=== PATIENT | male | born 1955 | race Hispanic/Latino ===

== ENCOUNTER 2017-09-03 07:57 | Observation (INO) | payer SELFPAY ==
[~2017-09-03] VITALS: Ht 175.3 cm; Wt 104.5 kg
[~2017-09-03 07:57] MED LIST: NAPROSYN500 MG OR
--- NOTE | 2017-09-03 08:08 | NUR ---
TO ROOM 10 VIA STRETCHER IN STABLE CONDITION.
--- NOTE | 2017-09-03 08:08 | NUR ---
DURING TRIAGE PT WITH NON PRODUCTIVE COUGH. STATES " HAD COUGH FOR 1 WEEK"
--- NOTE | 2017-09-03 08:30 | NUR ---
PT REPORTS SCROTAL SWELLING X 1 WEEK AND WORSENING OVER THE PAST 2 DAYS. PT ALSO REPORTS COUGH X 8 DAYS ALSO WORSENING OVER THE PAST 2 DAYS. PT WAS DIAGNOSED WITH PNEUMONIA A FEW DAYS AGO, PER PT. PT DENIES AN ANTIBIOTIC USE AT THIS TIME. ABD SOFT, NON TENDER UPON PALPATION. LS DIMINISHED IN THE LOWER LOBES. IV INITIATED, LABS AND BC X 2 COLLECTED. PT AWARE OF PLAN OF CARE AND WAIT TIME. CALL RC VO.
[2017-09-03 08:52] LABS: HEMATOCRIT 43.6 % (39.0-50.0); HEMOGLOBIN 14.2 g/dl (14.0-18.0); IMMATURE GRANULOCYTES 0.7 % (0.0-1.0); MEAN CORPUSCULAR HGB 30.6 pG CALC (26.0-32.0); MEAN CORPUSCULAR HGB CONC 32.6 g/L CALC (32.0-36.0); NEUT# 8.17 thou/uL (1.82-7.42); RED BLOOD COUNT 4.64 mill/uL (4.70-6.10); RED CELL DISTRI WIDTH 15.4 % (11.5-15.5)
[2017-09-03 09:07] LABS: ANION GAP 17 (6-22 (CALC)); BUN 22 mg/dL (8-23); BUN/CREATININE RATIO 17 (12-20 (CALC)); CARBON DIOXIDE 22 mmol/l (22-30); CHLORIDE 109 mmol/l (95-108); CREATININE 1.3 mg/dL (0.7-1.3); GFR 56 ML/MIN (>=60 (CALC)); GFR FOR AFR.AMER. > 60 ML/MIN (>=60 (CALC)); POTASSIUM 4.7 mmol/l (3.5-5.1); SODIUM 143 mmol/l (137-146)
[2017-09-03 09:28] LABS: INFLUENZA A NONE DETECTED (NONE DETECT); INFLUENZA B NONE DETECTED (NONE DETECT)
--- NOTE | 2017-09-03 09:30 | NUR ---
IV FLUIDS AND CEFEPIME INFUSING WITH NO DIFFICULTY. PT DENIES ANY PAIN OR NEDS AT THIS TIME. IV SITE FREE FROM REDNESS/EDMEA. WILL CONTINUE TO MONITOR.
[2017-09-03 10:09] LABS: URINE BILIRUBIN - DIPSTICK NEGATIVE (NEGATIVE); URINE BLOOD DIPSTICK MODERATE (NEGATIVE); URINE COLOR YELLOW; URINE GLUCOSE - DIPSTICK NEGATIVE (NEGATIVE); URINE KETONE NEGATIVE (NEGATIVE); URINE LEUK ESTERASE NEGATIVE (Negative); URINE NITRITE - DIPSTICK NEGATIVE (Negative); URINE PH 5.5 (4.5-8.0); URINE PROTEIN - DIPSTICK 30 mg/dL (NEG-TRACE); URINE SPECIFIC GRAVITY 1.025; URINE UROBILINOGEN - DIPSTICK 0.2 E.U./dL (0.2)
[2017-09-03 10:18] LABS: URINE CLARITY HAZY
--- NOTE | 2017-09-03 10:19 | NUR ---
MD AT BEDSIDE TO DISCUSS RESULTS.
--- NOTE | 2017-09-03 11:40 | NUR ---
MD AT BEDSIDE TO DISCUSS RESULTS AND PLAN OF CARE.
--- NOTE | 2017-09-03 12:10 | NUR ---
IV ANTIBIOTICS INFUSING. PT SITTING UPRIGHT IN STRECHER TALKING TO FAMILY. PT DENIES ANY PAIN/SOB AT THIS TIME. PT AWARE OF PENDING ADMISSION. WILL CONTINTUE TO MONITOR. CALL TATUM WITHIN REACH.
--- NOTE | 2017-09-03 12:53 | NUR ---
REPORT CALLED TO ELIZABETH HERNÁNDEZ.
--- NOTE | 2017-09-03 12:55 | NUR ---
FROM ER VIA WHEELCHAIR ACCOMPANIED BY SOUMYA JOHNSON. AMBULATED TO BATHROOM WITH STEADY GAIT. RESPS EVEN AND UNLABORED ON ROOM AIR. #20 LAC INFUSING WITHOUT DIFFICULTY, SITE APPEARS HEALTHY. DENIES PAIN OR DISCOMFORT. ORIENTED TO ROOM AND CALL SYSTEM. SAFETY PRECAUTIONS REINFORCED. BED IN LOWEST POSITION WITH WHEELS LOCKED. CALL LIGHT WITHIN REACH. ENCOURAGED PT TO CALL FOR ANY NEEDS.
[2017-09-03 13:00] VITALS: BP 119/76
--- NOTE | 2017-09-03 15:33 | NUR ---
The consult for was called and I spoke to the social secretary cheng @ [phone]
[2017-09-03 15:46] VITALS: BP 114/69
--- NOTE | 2017-09-03 16:00 | NUR ---
SITTING IN BEDSIDE CHAIR, FAMILY AT BEDSIDE. RESPS EVEN AND UNLABORED ON ROOM AIR. DENIES PAIN OR DISCOMFORT. DR NERI IN WITH PT, NEW ORDERS RECEIVED. CALL LIGHT WITHIN REACH. ENCOURAGED PT AND FAMILY TO CALL FOR ANY NEEDS.
--- NOTE | 2017-09-03 16:40 | NUR ---
MEDIATED WITH ROBITUSSIN PO FOR C/O COUGH.
[2017-09-03 19:10] VITALS: BP 133/84
--- NOTE | 2017-09-03 19:30 | NUR ---
PT OOB IN BEDSIDE CHAIR. FAMILY AT BEDSIDE. PT DENIES PAIN. RESP EVEN AND UNLABORED; NO DISTRESS NOTED. ABD DISTENDED;SOFT. ACTIVE BOWEL SOUNDS NOTED. PEDAL PULSES PALPATED BILAT. IV LAC FLUSHED WITHOUT DIFFICULTY. FREQUENT ROUNDS MADE. CALL LIGHT WITHIN REACH.
--- NOTE | 2017-09-04 00:15 | NUR ---
RESP EVEN AND UNLABORED. NO DISTRESS NOTED. BED IN LOWEST POSITION; SAFETY PRECAUTIONS IN PLACE. CALL LIGHT WITHIN REACH.
--- NOTE | 2017-09-04 04:30 | NUR ---
PT WOKE FOR VITALS. ASSESSMENT UNCHANGED. PT DENIES PAIN. SAFETY PRECAUTIONS REINFORCED. CALL LIGHT WITHIN REACH.
[2017-09-04 04:35] VITALS: BP 104/69
[2017-09-04 07:08] LABS: HEMATOCRIT 39.5 % (39.0-50.0); HEMOGLOBIN 12.7 g/dl (14.0-18.0); IMMATURE GRANULOCYTES 0.8 % (0.0-1.0); MEAN CELL VOLUME 93.6 fL CALC (80.0-100.0); MEAN CORPUSCULAR HGB 30.1 pG CALC (26.0-32.0); MEAN CORPUSCULAR HGB CONC 32.2 g/L CALC (32.0-36.0); NEUT# 7.76 thou/uL (1.82-7.42); RED BLOOD COUNT 4.22 mill/uL (4.70-6.10); RED CELL DISTRI WIDTH 15.1 % (11.5-15.5)
[2017-09-04 07:21] LABS: ALBUMIN 3.4 g/dL (3.2-5.0); ALKALINE PHOSPHATASE 124 u/l (38-126); ANION GAP 15 (6-22 (CALC)); BILIRUBIN, TOTAL 0.3 mg/dL (0.0-1.4); BUN 19 mg/dL (8-23); BUN/CREATININE RATIO 16 (12-20 (CALC)); CARBON DIOXIDE 24 mmol/l (22-30); CHLORIDE 110 mmol/l (95-108); CREATININE 1.2 mg/dL (0.7-1.3); GFR > 60 ML/MIN (>=60 (CALC)); GFR FOR AFR.AMER. > 60 ML/MIN (>=60 (CALC)); POTASSIUM 4.6 mmol/l (3.5-5.1); SGOT/AST 18 u/l (19-48); SGPT/ALT 37 u/l (11-66); SODIUM 144 mmol/l (137-146); TOTAL PROTEIN 6.3 g/dL (6.3-8.2)
[2017-09-04 08:00] VITALS: BP 130/87
--- NOTE | 2017-09-04 08:00 | NUR ---
0700:BEDSIDE REPORT RECEIVED BY NURSE BERNARDO. PT IS SLEEPING WITH NO S/S OF DISTRESS NOTED. VIMALRN IS ORIENTED THIS NURSE. 0800: PT IS SITTING IN THE SIDE OF THE BED. ASSESSMENT DONE AND VS CHARTED. RESPS EVEN AND UNLABORED ON ROOM AIR. PT HAS A COUGH NON-PRODUCTIVE. LEFT AC #20 AND SITE APPEARS HEALTHY. PT STATED THAT HE HAS NO PAIN AT THIS TIME. POC DISCUSSED AND SAFETY PRECAUTIONS REINFORCED. PT VERBALIZED UNDERSTANDING. PT CALL LIGHT IN REACH. PT DENIES ANY NEEDS AT THIS TIME.
[2017-09-04 08:54] LABS: CHOLESTEROL HDL RATIO 7.7 (<4.4 (CALC)); MAGNESIUM 2.1 mg/dL (1.6-2.3)
--- NOTE | 2017-09-04 11:13 | NUR ---
PT IS SITTING IN THE CHAIR VISITING WITH FAMILY. PT DENIES ANY NEEDS AT THIS TIME.
--- NOTE | 2017-09-04 12:35 | NUR ---
DR. NERI AT BEDSIDE. MD DISCUSSED PLAN OF CARE WITH PT AND PT VERBALIZED UNDERSTADNING.
[2017-09-04] MEDS ORDERED: LEVAQUIN750 MG PO (12:53)
--- NOTE | 2017-09-04 14:46 | NUR ---
Discharge instructions given. Patient verbalizes understanding of same. Discharged in stable condition via Wheelchair to Home with family. All belongings sent with pt.
== END 2017-09-04 14:40 | disposition home or self-care (01) | DRG 195 ==
LOC: ED 07:57 → ED-I 10:11 → ED 12:01 → MS2 12:02
PROVIDERS: Family Medicine; Nurse Practitioner Family; ADMIT Internal Medicine; ATTEND Internal Medicine
DX: J18.9 Pneumonia, unspecified organism (principal); K40.90 Unilateral inguinal hernia, without obstruction or gangrene, not specified as recurrent
CPT/HCPCS: G0378; J0692

== ENCOUNTER 2017-09-04 17:36 | Inpatient (IN) | payer SELFPAY ==
[2017-09-04] VITALS (7 sets, daily range): BP systolic 107–119; BP diastolic 57–75
[~2017-09-04] VITALS: Ht 175.3 cm; Wt 106.4 kg
[~2017-09-04 17:36] MED LIST changes: +LEVAQUIN750 MG PO
--- NOTE | 2017-09-04 17:43 | NUR ---
PT ASSISTED OUT OF CAR, TAKEN STRAIGHT BACK TO ER ROOM 10 BY WC. WHITE IN ROOM. PT CHANGED INTO GOWN, ON DESILVERIZER, IV ESTABLISHED. BLADDER U/S IN ROOM.
--- NOTE | 2017-09-04 17:50 | NUR ---
PT SITTING UPRIGHT IN STRETCHER, TACHYPNIC AT 50 BPM. ABD DISTENDED AND FIRM TO THE TOUCH. BS ACTIVE. LS DIMINISHED BILATERALLY WITH CRACKLES. PT REPORTS 10/10 STABBING PAIN TO THE ABD AND MID BACK. SAO2 89% ON ROOM AIR AND PLACED ON 4L NC. MD AT BEDSIDE TOBIAS PLACED, MINIMAL URINE OUTPUT NOTED.
[2017-09-04 17:59] LABS: HEMATOCRIT 44.9 % (39.0-50.0); HEMOGLOBIN 14.4 g/dl (14.0-18.0); IMMATURE GRANULOCYTES 0.5 % (0.0-1.0); MEAN CELL VOLUME 94.5 fL CALC (80.0-100.0); MEAN CORPUSCULAR HGB 30.3 pG CALC (26.0-32.0); MEAN CORPUSCULAR HGB CONC 32.1 g/L CALC (32.0-36.0); NEUT# 11.79 thou/uL (1.82-7.42); RED BLOOD COUNT 4.75 mill/uL (4.70-6.10)
[2017-09-04 18:08] LABS: ALBUMIN 4.3 g/dL (3.2-5.0); ALKALINE PHOSPHATASE 153 u/l (38-126); ANION GAP 19 (6-22 (CALC)); BILIRUBIN, TOTAL 0.6 mg/dL (0.0-1.4); BUN 18 mg/dL (8-23); BUN/CREATININE RATIO 14 (12-20 (CALC)); CARBON DIOXIDE 24 mmol/l (22-30); CHLORIDE 106 mmol/l (95-108); CREATININE 1.3 mg/dL (0.7-1.3); GFR 56 ML/MIN (>=60 (CALC)); GFR FOR AFR.AMER. > 60 ML/MIN (>=60 (CALC)); LIPASE 82 u/l (23-300); POTASSIUM 4.5 mmol/l (3.5-5.1); SGOT/AST 33 u/l (19-48); SGPT/ALT 40 u/l (11-66); SODIUM 145 mmol/l (137-146); TOTAL PROTEIN 7.8 g/dL (6.3-8.2)
--- NOTE | 2017-09-04 18:15 | NUR ---
18 F NG TUBE PLACED IN RIGHT NARES. PLACEMENT CONFIRMED BY RETURN OF 300 MLS OF GASTRIC CONTENT, CLEAR IN COLOR WITH FOOD PARTICLES.
--- NOTE | 2017-09-04 18:37 | NUR ---
PT RETURNED FROM CT . TEMP RECHECK 103.8. NOTIFIED, AWAITING ORDERS. IV FLUIDS INFUSING, IV SITE FREE FROM REDNESS AND EDEMA.
--- NOTE | 2017-09-04 18:50 | NUR ---
REPORT GIVEN TO ELIZABETH NUR.
[2017-09-04 18:54] LABS: URINE BILIRUBIN - DIPSTICK NEGATIVE (NEGATIVE); URINE BLOOD DIPSTICK LARGE (NEGATIVE); URINE COLOR YELLOW; URINE GLUCOSE - DIPSTICK NEGATIVE (NEGATIVE); URINE KETONE NEGATIVE (NEGATIVE); URINE LEUK ESTERASE NEGATIVE (NEGATIVE); URINE NITRITE - DIPSTICK NEGATIVE (Negative); URINE PROTEIN - DIPSTICK TRACE mg/dL (NEG-TRACE); URINE UROBILINOGEN - DIPSTICK 0.2 E.U./dL (0.2)
[2017-09-04 18:55] LABS: URINE CLARITY CLOUDY
--- NOTE | 2017-09-04 18:55 | NUR ---
100% NON REBREATHER PLACED ON PATIENT. SAO2 NOW 98%.
[2017-09-04 19:05] LABS: URINE RBC TNTC RBC/hpf (0-5); URINE SQUAMOUS EPITHELIAL CELL FEW EPI/hpf (0-FEW)
--- NOTE | 2017-09-04 19:07 | NUR ---
FAMILY AT BEDSIDE. DISCUSSED CURRENT PLANS AND RESULTS. AWAITING DISPOSITION.
--- NOTE | 2017-09-04 20:03 | NUR ---
BREATHING TREATMENT GIVEN. BREATHING TECH. FOR GOOD DEPOSITION TO THE LUNGS.
--- NOTE | 2017-09-04 21:17 | NUR ---
SPO2 DROPPING. PT PREDOMINANTLY MOUTH BREATHING. CHANGED TO 50% VENTI MASK.
--- NOTE | 2017-09-04 21:43 | NUR ---
DECREASED TO 35 % VENTIMASK
--- NOTE | 2017-09-04 21:57 | NUR ---
REPORT GIVEN TO ELIZABETH JACKSON ICU. TOLERATING O2 CHANGES. AWAKE ALERT. Admission Note Report Given to: ELIZABETH JACKSON Transported by: Wheelchair X Stretcher Transported with: X Nurse Transporter X Patent IV X O2 X Molder Wax Ball
--- NOTE | 2017-09-04 22:10 | NUR ---
62 yr old male admitted icu5 per stretcher from er. stood to weigh then to bed. sob with exertion. o2 cont per 35% v/m. tight wheezing thruout. director cardiac shows sinus rhythm. #18 rac ns infusing @ 150cchr. ngt to lis in place draining small amt garcia drainage. gonzales cath in place. urine pink tinged. history obtained per er record & discharge summery. oriented to room. fall precaution initiated.
--- NOTE | 2017-09-04 22:30 | NUR ---
analisa from called this health science writer. informed that dr jo had talked to dr batres & dr batres wanted ngt d/c'd. ngt d/c'd.
--- NOTE | 2017-09-04 22:40 | NUR ---
notified danica called @ [facility] need to verify quinteno & roxy.
[2017-09-05] VITALS (10 sets, daily range): BP systolic 94–130; BP diastolic 51–80
--- NOTE | 2017-09-05 01:15 | NUR ---
lortab 7.5mg po given per request for h/a. family remains @ bedside.
--- NOTE | 2017-09-05 02:00 | NUR ---
eyes closed. no distress. electronic device monitor shows sinus rhythm.
--- NOTE | 2017-09-05 04:00 | NUR ---
lab here. blood drawn.
[2017-09-05 05:08] LABS: HEMATOCRIT 38.6 % (39.0-50.0); HEMOGLOBIN 12.1 g/dl (14.0-18.0); MEAN CELL VOLUME 95.5 fL CALC (80.0-100.0); MEAN CORPUSCULAR HGB CONC 31.3 g/L CALC (32.0-36.0); RED BLOOD COUNT 4.04 mill/uL (4.70-6.10); RED CELL DISTRI WIDTH 15.3 % (11.5-15.5)
[2017-09-05 05:33] LABS: ANION GAP 17 (6-22 (CALC)); BUN 16 mg/dL (8-23); BUN/CREATININE RATIO 14 (12-20 (CALC)); CARBON DIOXIDE 22 mmol/l (22-30); CHLORIDE 109 mmol/l (95-108); CREATININE 1.2 mg/dL (0.7-1.3); GFR > 60 ML/MIN (>=60 (CALC)); GFR FOR AFR.AMER. > 60 ML/MIN (>=60 (CALC)); MAGNESIUM 1.8 mg/dL (1.6-2.3); POTASSIUM 4.5 mmol/l (3.5-5.1); SODIUM 144 mmol/l (137-146)
--- NOTE | 2017-09-05 06:00 | NUR ---
awake. c/o pressure in bladder area. no acute distress.
--- NOTE | 2017-09-05 07:30 | NUR ---
PT SITTING UP ON BSC AM ASSESSMENT COMPLETED SEE INTERVNETIONS, LUNGS COARSE AND DIMINSHED, WITH NO SHORTNESS OF BREATH OR DISTRESS NOTED PT HAS THICK NECK AND TOLERATES VENTI MASK AT 35% W/O INCIDENT, SATS MAINTAINED WITH VENTI MASK, ABD LARGE AND BS ACTIVE LAST BM 09/02/17 PER PT ALSO STATES HE HASN'T BEEN EATING ALOT SO HE DENIES CONSTIPATION, SKIN WARM DRY AND INTACT FOLY INTACT DRAINING YELLOW URINE SOME BLOOD TINGING NOTED, COMFORT MEASURES PROVIDED, CALL TATUM WITHIN REACH.
--- NOTE | 2017-09-05 08:00 | NUR ---
PT RESTING REMAINS SITTING ON BSC (PER HIS REQUEST) COMFORT MEASURES PROVIDED, CALL TATUM WITHIN REACH
--- NOTE | 2017-09-05 08:51 | NUR ---
QUICKBOOKS BOOKKEEPER AT BEDSIDE FOR AM BATH AND LINEN CHANGE, SOME EXERTIONAL DYSPNEA NOTED PT TO SIT IN RECLINER (AGAIN PER HIS REQUEST) CONTINUE TO TOLERATE VENTI MASK, CALL TATUM WITHIN REACH
--- NOTE | 2017-09-05 09:01 | NUR ---
AT BEDSIDE, PT STANDING IN FRONT OF RECLINER TALKING WITH SPOUSE, CALL TATUM WITHIN REACH.
--- NOTE | 2017-09-05 10:05 | NUR ---
PT REMAINS SITTING UP IN RECLINER, AT BEDSIDE, CALL TATUM WITHIN REACH, MEDICATED FOR PAIN, LYNN CONTINUE TO MONITOR,
--- NOTE | 2017-09-05 10:56 | NUR ---
DARON ORTEZ IN TO SEE PATIENT, PLAN OF CARE DISCUSSED, INCLUDING PLAN OF CARE COMMUNICATION DONE VIS ERASMO JOHNSON ACTING INTREPRETER
--- NOTE | 2017-09-05 11:57 | NUR ---
MEDICATED ORDERED WITH SURFAK AND MIRALAX, PT TOOK WELL, AND INTERMITTENLY STANDS AT BEDSIDE WITH STORNG STEADY GAIT, CALL TATUM WITHIN REACH
--- NOTE | 2017-09-05 12:44 | NUR ---
S: NEWTON VARGAS is a 62 M who presents with bilateral pneumonia. All medications in patient's chart were reviewed. O: VS: BP: 103/62mmHg, P: 88 beats/min, RR: 20 breaths/min, T: 98.2F, Tmax(24h): 103.8F Actual Body Weight 104.4kg, HT 69in, Adj Body weight: 84.2kg, Scr=1.2, CrCl (based on C-G equation w/ adjusted BW= 77ml/min A: Blood culture from 09/03 is pending. P: Patient is currently on Zosyn 3.375g IV q6h plus received a 1x dose of vancomycin 1gm IV 09/04 @ 2330. Vancomycin ordered for pharmacy to dose. Start Vancomycin 1.25g IV Q12H @ 0200,1400. Vancomycin trough to be drawn on 09/07/17 @ 0130, 30 minutes prior to the 4th dose. Vancomycin goal trough is between 15-20 mcg/ml. Pharmacy will follow and or advise on antibiotics use as needed.
--- NOTE | 2017-09-05 13:16 | NUR ---
FAMILY MEMBERS AT BEDSIDE, CALL TATUM WITHIN REACH, IVF COTNINUE AT PRESCRIBED RATE. CONTINUES ON VENTI MASK W/O INCIDENT.
--- NOTE | 2017-09-05 15:40 | NUR ---
PT CAME FROM ICU VIA WHEELCHAIR BY ELIZABETH CORTEZ AND WITH FAMILY AT SIDE. WEIGHT OBTAIN AND PT IN BED NOW. ASSESSMENT DONE. LUNGS ARE COARSE AND DIMINSHED. PT STATED HE DID NOT FEEL SHORTNESS OF BREATH AND VENTI MASK ON. IV SITE #18 LAC AND #18 RAC APPEARS HEALTHY. TOBIAS DRAINING YELLOW SOME BLOOD TINGING. PT STATED THAT HE DOES NOT HAVE PAIN AT THIS TIME. OREIENTED PT TO THE ROOM AND CALL LIGHT SYSTEM. SAFETY PRECAUTIONS REINFORCED. PT VERBALIZED UNDERSTANDING.
--- NOTE | 2017-09-05 17:45 | NUR ---
PT IN SEMI-FOWLERS IN BED. VISTING WITH FAMILY. PT DENIES PAIN AT THIS TIME. PT IS GOING TO START EATING HIS DINNER AND PRUNE JUICE GIVEN. CALL LIGHT IN REACH.
--- NOTE | 2017-09-05 19:10 | NUR ---
REPORT RECEIVED FROM HOLLYRN;PT OOB RESTING IN RECLINER WITH FAMILY AT BEDSIDE;PT DENIES ANY PAIN;POC DISCUSSED;PT ENCOURAGED TO CALL FOR ASSISTANCE IF NEEDED;CALL LIGHT IN REACH;WILL CONTINUE TO MONITOR
--- NOTE | 2017-09-05 21:30 | NUR ---
PT IN RECLINER;A&O X3;ASSESSMENT COMPLETED;RESPIRATIONS EVEN AND UNLABORED ON VENTI MASK,DIMINISHED BASES NOTED;ABDOMEN SOFT;PT DENIES ANY PAIN OR DISCOMFORTS;#18G TO RAC INFUSING NS @ 125 ML/HR WELL, SITE APPEARS HEALTHY;#18G TO LAC FLUSHED AND PATENT;TELE MONITOR IN PLACE;STRONG PEDAL PULSES;TOBIAS CATHETER PATENT HANGING TO GRAVITY WITH LEG STRAP;PT DENIES ANY NEEDS AT THIS TIME;COT AND BLANKETS PROVIDED FOR FAMILY THAT ARE STAYING THE NIGHT;SAFETY PRECAUTIONS REINFORCED;CALL LIGHT IN REACH;WILL CONTINUE TO MONITOR
--- NOTE | 2017-09-06 | NUR ---
IVELISSE CORREA OBTAINING VS;PT COMPLAINS OF BURNING TO IV SITE;#18 TO RAC FOUND TO BE INFILTRATED;SITE REMOVED WITH CATHETER INTACT AND PRESSURE APPLIED;PT VOICES NO OTHER NEEDS AT THIS TIME;TELE MONITOR IN PLACE;TOBIAS CATHETER PATENT;CALL LIGHT IN REACH;WILL CONTINUE TO MONITOR
[2017-09-06 00:04] VITALS: BP 107/71
[2017-09-06 04:04] VITALS: BP 114/60
[2017-09-06 05:37] LABS: HEMATOCRIT 35.7 % (39.0-50.0); HEMOGLOBIN 11.6 g/dl (14.0-18.0); MEAN CELL VOLUME 93.7 fL CALC (80.0-100.0); MEAN CORPUSCULAR HGB 30.4 pG CALC (26.0-32.0); MEAN CORPUSCULAR HGB CONC 32.5 g/L CALC (32.0-36.0); RED BLOOD COUNT 3.81 mill/uL (4.70-6.10); RED CELL DISTRI WIDTH 14.8 % (11.5-15.5)
--- NOTE | 2017-09-06 05:40 | NUR ---
PT RESTING IN SEMI FOWLERS POSITION WITH SPOUSE AT BEDSIDE;#18G TO LAC FOUND DISLODGED;SITE REMOVED WITH CATHETER INTACT;NEW #22G TO RIGHT HAND STARTED,FLUSHED AND PATENT;PT VOICES NO OTHER COMPLAINTS AT THIS TIME;TELE MONITOR IN PLACE;TOBIAS CATHETER PATENT;CALL LIGHT IN REACH;WILL CONTINUE TO MONITOR
[2017-09-06 05:41] LABS: ANION GAP 17 (6-22 (CALC)); BUN 20 mg/dL (8-23); BUN/CREATININE RATIO 15 (12-20 (CALC)); CARBON DIOXIDE 21 mmol/l (22-30); CHLORIDE 111 mmol/l (95-108); CREATININE 1.3 mg/dL (0.7-1.3); GFR 56 ML/MIN (>=60 (CALC)); GFR FOR AFR.AMER. > 60 ML/MIN (>=60 (CALC)); POTASSIUM 4.2 mmol/l (3.5-5.1); SODIUM 144 mmol/l (137-146)
--- NOTE | 2017-09-06 07:00 | NUR ---
SHIFT CHANGE REPORT FROM ELADIA MATTSON RESTING IN BED, VENTI MASK IN PLACE, TELE MONITOR IN PLACE, DENIES PAIN AT THIS TIME, CALL TATUM IN REACH.
[2017-09-06 09:57] VITALS: BP 96/70
--- NOTE | 2017-09-06 10:45 | NUR ---
TOBIAS CATHETER REMOVED PER MD'S ORDER, PROCEDURE TOLERATED MODERATELY WELL WHTI PT C/O SOME DISCOMFORT, PT URINATED CLEAR YELLOW URINE AFTER REMOVAL.
[2017-09-06 11:07] VITALS: BP 121/75
[2017-09-06 15:59] VITALS: BP 136/74
--- NOTE | 2017-09-06 17:05 | NUR ---
Patient feels better. No side effectsc
[2017-09-06 18:00] VITALS: BP 131/77
--- NOTE | 2017-09-06 19:45 | NUR ---
PT RESTING IN SEMI-FOWLERS POSITION WITH FAMILY AT BEDSIDE. RESP EVEN AND UNLABORED WITH VENTI MASK IN PLACE. NO DISTRESS NOTED. TELE IN PLACE. ABD DISTENDED; SOFT. ACTIVE BOWEL SOUNDS NOTED. PEDAL PULSES PALPATED BILAT. IV RH PATENT; NO REDNESS OR EDEMA NOTED. PT DENIES PAIN. SAFETY PRECAUTIONS REINFORCED. FREQUENT ROUNDS MADE. CALL LIGHT WITHIN REACH.
[2017-09-07 00:10] VITALS: BP 123/76
--- NOTE | 2017-09-07 00:20 | NUR ---
PT WOKE TO PUT VENTI MASK BACK IN PLACE. PT DENIES PAIN. TELE IN PLACE. CALL LIGHT WITHIN REACH.
--- NOTE | 2017-09-07 04:10 | NUR ---
FAMILY AT BEDSIDE. RESP EVEN AND UNLABORED WITH VENTI MASK IN PLACE. ASSESSMENT UNCHANGED. TELE IN PLACE. CALL LIGHT WITHIN REACH.
[2017-09-07 05:00] VITALS: BP 105/60
[2017-09-07 06:11] LABS: HEMATOCRIT 33.4 % (39.0-50.0); HEMOGLOBIN 10.8 g/dl (14.0-18.0); MEAN CELL VOLUME 93.6 fL CALC (80.0-100.0); MEAN CORPUSCULAR HGB 30.3 pG CALC (26.0-32.0); MEAN CORPUSCULAR HGB CONC 32.3 g/L CALC (32.0-36.0); RED BLOOD COUNT 3.57 mill/uL (4.70-6.10); RED CELL DISTRI WIDTH 14.9 % (11.5-15.5)
[2017-09-07 06:16] LABS: ANION GAP 16 (6-22 (CALC)); BUN 20 mg/dL (8-23); BUN/CREATININE RATIO 18 (12-20 (CALC)); CARBON DIOXIDE 24 mmol/l (22-30); CHLORIDE 112 mmol/l (95-108); CREATININE 1.1 mg/dL (0.7-1.3); GFR > 60 ML/MIN (>=60 (CALC)); GFR FOR AFR.AMER. > 60 ML/MIN (>=60 (CALC)); POTASSIUM 4.3 mmol/l (3.5-5.1); SODIUM 147 mmol/l (137-146)
--- NOTE | 2017-09-07 07:00 | NUR ---
SHIFT CHANGE REPORT FROM HEIKE, PT SLEEPING BUT RESPONDS TO VERBAL STIMULI, STATES FEELS MUCH BETTER TODAY AND WANTS TO GO HOME, AMBULATED ALL HALLWAYS AT NIGHT, FACE MASK IN PLACE, IVF INFUSING @ KVO, TELE MONITOR IN PLACE, CALL TATUM IN REACH.
--- NOTE | 2017-09-07 11:15 | NUR ---
HAD SHOWER, AMBULATED ALL HALLWAYS AND IS NOW RESTING IN ROOM.
[2017-09-07 11:31] VITALS: BP 111/62
--- NOTE | 2017-09-07 15:32 | NUR ---
S: NEWTON VARGAS is a 62 M who presents with pneumonia and hypoxia. He has a history of inguinal hernia and pneumonia. All medications in patient's chart were reviewed. O: VS: BP 111/62, P 74, RR 22,T 99.4(F) W 106.396 kg, HT 69 in, Scr= 1.1,CrCl= 84.8 ml/min A: Blood culture show no growth after 48 hours. P: Patient is on Zosyn 3.375 G IV Q6H. Vancomycin ordered for pharmacy to dose. Resume Vancomycin 1.25 G IV Q12H. Vancomycin trough is drawn before the 4th dose on 09/09/17 at 01:30. Vancomycin goal trough is between 15-20 mcg/ml. Pharmacy will follow and or advise on antibiotics use as needed.
--- NOTE | 2017-09-07 15:36 | NUR ---
Patient feels better but still has cough with clear muscus. No side effects pertaining to medications.c
[2017-09-07 15:42] VITALS: BP 113/79
[2017-09-07 19:00] VITALS: BP 125/73
--- NOTE | 2017-09-07 21:00 | NUR ---
INTRODUCED SELF TO PT AND FAMILY. NO SIGNS OF DISTRESS NOTED. RESP EVEN AND UNLABORED WITH VENTI MASK. ALERT AND ORIENTED X3, DISCUSSED LOVENOX AND SOLUMEDROL. PT STATES HE HAS HAD A BM TODAY. ASSESSMENT COMPLETED. CALL LIGHT IN REACH,CONTINUE TO MONITOR.
[2017-09-07 23:55] VITALS: BP 123/71
--- NOTE | 2017-09-08 | NUR ---
ANTIBIOTIC HUNG, PT VOICES NO NEEDS OR COMPLAINTS, CALL LIGHT IN REACH,CONTINUE TO MONITOR.
--- NOTE | 2017-09-08 01:43 | NUR ---
ANTIBIOTIC HUNG, PT VOICES NO NEEDS OR COMPLAINTS. REAPPLIED VENTI MASK. CALL LIGHT IN REACH,CONTINUE TO MONITOR.
--- NOTE | 2017-09-08 01:56 | NUR ---
ER CALLED HR DOWN TO 40'S. ENTERED ROOM PT NO LONGER WEARING MASK, AWAKENED AND MASK REAPPLIED. INFORMED PT OF HR, VERBALIZED UNDERSTANDING. PT CONCERNED WHEN HE GOES HOME, WILL RELAY IN REPORT TO NURSE FOR MD TO ADDRESS. CALL LIGHT IN REACH,CONTINUE TO MONITOR.
--- NOTE | 2017-09-08 04:15 | NUR ---
ER CALLED PT DOWN TO HR 37. ENTERED ROOM PT NOT WEARING VENTI MASK. PT AWOKEN AND DISCUSSED IMPORTANCE OF KEEPING MASK ON, VERBALIZED UNDERSTANDING. CALL LIGHT IN REACH,CONTINUE TO MONITOR.
[2017-09-08 04:27] VITALS: BP 115/71
[2017-09-08 04:48] LABS: HEMATOCRIT 33.8 % (39.0-50.0); HEMOGLOBIN 10.9 g/dl (14.0-18.0); MEAN CELL VOLUME 94.2 fL CALC (80.0-100.0); MEAN CORPUSCULAR HGB 30.4 pG CALC (26.0-32.0); MEAN CORPUSCULAR HGB CONC 32.2 g/L CALC (32.0-36.0); NEUT# 13.06 thou/uL (1.82-7.42); RED BLOOD COUNT 3.59 mill/uL (4.70-6.10); RED CELL DISTRI WIDTH 15.2 % (11.5-15.5)
[2017-09-08 05:01] LABS: ANION GAP 15 (6-22 (CALC)); BUN 23 mg/dL (8-23); BUN/CREATININE RATIO 20 (12-20 (CALC)); CARBON DIOXIDE 22 mmol/l (22-30); CHLORIDE 114 mmol/l (95-108); CREATININE 1.2 mg/dL (0.7-1.3); GFR > 60 ML/MIN (>=60 (CALC)); GFR FOR AFR.AMER. > 60 ML/MIN (>=60 (CALC)); MAGNESIUM 2.4 mg/dL (1.6-2.3); POTASSIUM 4.3 mmol/l (3.5-5.1); SODIUM 146 mmol/l (137-146)
--- NOTE | 2017-09-08 07:00 | NUR ---
RECEIVED BEDSIDE REPORT FROM FARIHA THOMAS. RESTING IN BED WITH EYES CLOSED, AWAKENS EASILY. RESPS EVEN AND UNLABORED ON VENTIMASK, TELE MONITOR IN PLACE. #22 LH INFUSING WITHOUT DIFFICULTY, SITE APPEARS HEALTHY. DENIES PAIN OR DISCOMFORT. PLAN OF CARE DISCUSSED. SAFETY PRECAUTIONS REINFORCED. BED IN LOWEST POSITION WITH WHEELS LOCKED. CALL LIGHT WITHIN REACH. ENCOURAGED PT TO CALL FOR ANY NEEDS.
[2017-09-08 08:03] VITALS: BP 112/57
[2017-09-08 11:51] VITALS: BP 100/65
--- NOTE | 2017-09-08 12:40 | NUR ---
IN BED WITH EYES CLOSED, AWAKENS EASILY. RESPS EVEN AND UNLABORED ON O2 VIA NC, TELE MONITOR IN PLACE. VOICES NO NEEDS AT THIS TIME. DR NERI AT BEDSIDE, AWAITING NEW ORDERS. CALL LIGHT WITHIN REACH. WILL CONTINUE TO MONITOR.
[2017-09-08 16:38] VITALS: BP 108/49
--- NOTE | 2017-09-08 16:56 | NUR ---
SITTING IN BEDSIDE CHAIR. RESPS EVEN AND UNLABORED ON O2 VIA NC, TELE MONITOR IN PLACE. DENIES PAIN OR DISCOMFORT. #22 LH INFUSING WITHOUT DIFFICULTY, SITE APPEARS HEALTHY. CALL LIGHT WITHIN REACH. ENCOURAGED PT TO CALL FOR ANY NEEDS.
[2017-09-08] MEDS ORDERED: SURFAK240 MG/CAP PO (17:27)
[2017-09-08] MEDS ORDERED: IPRATROPIU0.5 MG/3 M IN (17:27)
[2017-09-08] MEDS ORDERED: TRAMADOL HCL50 MG PO (17:27)
[2017-09-08] MEDS ORDERED: NEBULIZER COMPRESSOR (17:27)
[2017-09-08] MEDS ORDERED: PREDNISONE10 MG PO (17:27)
[2017-09-08] MEDS ORDERED: LEVAQUIN750 MG PO (17:27)
== END 2017-09-08 19:25 | disposition home or self-care (01) | DRG 193 ==
LOC: ED 17:36 → ED-I 19:42 → ED 20:29 → MS2 20:30 → ICU 21:43 → MS2 09-05 15:43
PROVIDERS: Emergency Medicine; Nurse Practitioner Family; ADMIT Internal Medicine; ATTEND Internal Medicine
PROC: 0T9B70Z Drainage of Bladder with Drainage Device, Via Natural or Artificial Opening (ICD-10-PCS; principal; 2017-09-04)
DX: J18.9 Pneumonia, unspecified organism (principal); J96.01 Acute respiratory failure with hypoxia; E87.1 Hypo-osmolality and hyponatremia; K40.90 Unilateral inguinal hernia, without obstruction or gangrene, not specified as recurrent; R31.29 Other microscopic hematuria; K59.00 Constipation, unspecified
CPT/HCPCS: J1650; J3370